=== PATIENT | male | born 1935 | race Caucasian/White ===

== ENCOUNTER 2017-12-02 15:58 | Emergency (ER) | payer MEDICARE, OTHER ==
[~2017-12-02] VITALS: Ht 177.8 cm; Wt 100.0 kg
[2017-12-02] MEDS ORDERED: aspirin 325mg tablet PO ONE (18:35)
[2017-12-02 18:56] VITALS: BP 133/80
== END 2017-12-02 18:57 | disposition home or self-care (01) ==
LOC: ER 15:59
DX: H57.11 Ocular pain, right eye (principal); Z88.5 Allergy status to narcotic agent
CPT/HCPCS: 70450; 93005; 99284